=== PATIENT | female | born 1975 | race Caucasian/White ===

== ENCOUNTER 2018-12-16 10:28 | Day surgery (SDC) | payer OTHER ==
[2018-12-15 14:05] VITALS: BMI 21.8
[2018-12-16 12:13] VITALS: TEMP 97.7
[2018-12-16 13:08] VITALS: BP 101/64; PULSE 64
--- NOTE | 2018-12-19 17:40 | PATH ---
Surgical Pathology Report Patient Name: CONNER BRADFORD [facility]. Rec. #: [id number] /Age/Gender: 1975 (Age: 43) / F Account: [id number] Location: U-ENDOSCOPY Taken: 12/16/2018 Received: 12/16/2018 Reported: 12/19/2018 Physicians: Sharon Rodriguez M.D. Specimen(s) Received A: DUODENUM B: ANTRUM Clinical History Abdominal pain, family history of gastric cancer Postoperative diagnosis: Normal EGD Final Diagnosis A. DUODENUM, SECOND PORTION AND DUODENAL BULB, BIOPSY: DUODENAL MUCOSA WITHOUT SIGNIFICANT PATHOLOGIC FINDINGS. B. STOMACH, ANTRUM, BIOPSY: GASTRIC ANTRAL MUCOSA WITH SEVERE CHRONIC ACTIVE GASTRITIS. IMMUNOHISTOCHEMICAL STAIN FOR H. PYLORI IS POSITIVE (NUMEROUS). Electronically Signed Shanta Guzman M.D. Gross Description A. Received in formalin, labeled "biopsy second portion of duodenum and duodenal bulb" are 3 ho, irregular portions of soft tissue averaging 0.5 cm. in greatest dimension. The specimens are submitted in toto in one cassette. B. Received in formalin, labeled "biopsy antrum" are 4 ho, irregular portions of soft tissue ranging from 0.2-0.4 cm. in greatest dimension. The specimens are submitted in toto in one cassette. 12/16/2018 [facility]12/16/2018
== END 2018-12-16 13:08 | disposition home or self-care (01) ==
LOC: JASU-ENDO 10:28
PROVIDERS: ATTEND Internal Medicine Gastroenterology
PROC: 0DB68ZX Excision of Stomach, Via Natural or Artificial Opening Endoscopic, Diagnostic (ICD-10-PCS; principal; 2018-12-16 10:30)
DX: K22.4 Dyskinesia of esophagus (principal); K21.9 Gastro-esophageal reflux disease without esophagitis
CPT/HCPCS: 84703; 88305-TC; 88342-TC

== ENCOUNTER 2024-12-18 06:20 | Day surgery (SDC) | payer BC ==
[2024-12-14 12:43] VITALS: BMI 24.7
[2024-12-18] MEDS ORDERED: PROPOFOL 20 ML ONE (07:07)
[2024-12-18] MEDS ORDERED: LIDOCAINE HCL/PF 2% SDV 5ML VIAL ONE (07:07)
[2024-12-18] MEDS ORDERED: MIDAZOLAM HCL 2 MG/2 ML SINGLE DOSE VIAL ONE (07:07)
[2024-12-18] MEDS: ceFAZolin SODIUM 1 GM VIAL IVPB ONE (08:43)
[2024-12-18] MEDS ORDERED: DEXAMETHASONE SOD PHOSPHATE 4 MG/1 ML VIAL ONE (08:44)
[2024-12-18] MEDS ORDERED: ceFAZolin SODIUM 1 GM VIAL ONE (08:44)
[2024-12-18] MEDS ORDERED: ONDANSETRON 4 MG/2 ML VIAL ONE (09:06)
[2024-12-18] MEDS ORDERED: KETOROLAC TROMETHAMINE 30 MG/1 ML VIAL ONE (09:06)
[2024-12-18] MEDS ORDERED: ONDANSETRON 4 MG/2 ML VIAL IVPUSH PRN (09:30)
[2024-12-18] MEDS ORDERED: LACTATED RINGERS SOLUTION 1,000 ML IV SCH (09:30)
[2024-12-18] MEDS ORDERED: oxyCODONE HCL 5 MG TABLET PO PRN ×2 (09:30)
[2024-12-18] MEDS ORDERED: PROMETHAZINE HCL 25 MG/1 ML VIAL IVPB PRN (09:30)
[2024-12-18] MEDS ORDERED: ACETAMINOPHEN INJECTION 100 ML ONE (09:44)
[2024-12-18] MEDS: ACETAMINOPHEN 1000 MG/100 ML BAG IVPB ONE (09:46)
[2024-12-18 14:42] VITALS: BP 116/68; PULSE 63; RESP 20; TEMP 97.7
== END 2024-12-18 15:23 | disposition home or self-care (01) ==
LOC: JASU-SURG 06:20
PROVIDERS: ATTEND Obstetrics & Gynecology
PROC: 0UB98ZZ Excision of Uterus, Via Natural or Artificial Opening Endoscopic (ICD-10-PCS; principal; 2024-12-18 08:00)
DX: N92.4 Excessive bleeding in the premenopausal period (principal); N84.0 Polyp of corpus uteri
CPT/HCPCS: 81025; 88305-TC; 94760